=== PATIENT | male | born 2000 | race Hispanic/Latino ===

== ENCOUNTER 2021-09-12 22:37 | Emergency (ER) | payer MEDICAID, OTHER ==
[~2021-09-12] VITALS: Ht 167.6 cm; Wt 59.9 kg
[2021-09-13 00:18] VITALS: BP 112/70
[2021-09-13] MEDS ORDERED: AMOX-429 PO (00:20)
== END 2021-09-13 00:51 | disposition home or self-care (01) ==
LOC: EDH 22:37
DX: L04.0 Acute lymphadenitis of face, head and neck (principal)

== ENCOUNTER 2022-11-22 12:48 | Emergency (ER) | payer OTHER ==
[~2022-11-22] VITALS: Ht 165.1 cm; Wt 60.3 kg
[~2022-11-22 12:48] MED LIST: AMOX-429 PO
[2022-11-22] MEDS ORDERED: PENICILLIN G POTASSIUM 5 MILUNITS/VIAL IM ONE (15:00)
[2022-11-22] MEDS ORDERED: KETOROLAC 30MG VIAL (30MG/ML) IM ONE (15:00)
[2022-11-22] MEDS ORDERED: IBUP-2070 PO (15:02)
[2022-11-22] MEDS ORDERED: PENICILLIN G BENZATHINE LA 1.2 MILUNITS/2 ML SYG IM ONE (15:30)
[2022-11-22 16:50] VITALS: BP 108/65
== END 2022-11-22 17:01 | disposition home or self-care (01) ==
LOC: EDH 12:48
DX: J02.9 Acute pharyngitis, unspecified (principal); R51.9 Headache, unspecified; Z79.1 Long term (current) use of non-steroidal anti-inflammatories (NSAID); Z79.2 Long term (current) use of antibiotics; Z20.822 Contact with and (suspected) exposure to COVID-19
CPT/HCPCS: 99284; 87635; 87880; 87804 ×2; 96372; J0561; C9803; J1885

== ENCOUNTER 2025-01-18 16:29 | Emergency (ER) | payer SELFPAY ==
[~2025-01-18] VITALS: Ht 165.1 cm; Wt 61.2 kg
[~2025-01-18 16:29] MED LIST changes: +IBUP-2070 PO
[2025-01-18 17:29] LABS: BILIRUBIN,URINE NEGATIVE (NEGATIVE); COLOR,URINE LIGHT-YELLOW (YELLOW); GLUCOSE, URINE (UA) NEGATIVE (NEGATIVE); KETONES,URINE NEGATIVE (NEGATIVE); LEUKOCYTE ESTERASE ,URINE NEGATIVE Leu/uL (NEGATIVE); NITRATE,URINE NEGATIVE (NEGATIVE); OCCULT BLOOD,URINE NEGATIVE (NEGATIVE); PH,URINE 7.5 (5.0-8.0); PROTEIN,URINE NEGATIVE (NEGATIVE)
[2025-01-18 17:30] LABS: ADD UA MICROSCOPIC NO; APPEARANCE,URINE CLEAR (CLEAR)
--- NOTE | 2025-01-18 18:00 | ERN ---
General Chief Complaint: Urinary Frequency Stated Complaint: URINARY PROBLEMS Time Seen by MD: 16:33 Time Seen by Midlevel: 16:33 Source: patient History of Present Illness Initial Comments The patient is a 24-year-old male with no significant past medical history presenting to the emergency department for evaluation of polyuria and dysuria that has been intermittent in nature for the last two years. The patient reports a similar episode earlier in the month and was diagnosed with a urinary tract infection. He does report having a history of chlamydia however today he denies having any concern for an STD. He specifically denies any suprapubic abdominal pain, hematuria, or any other symptoms at this time. Allergies: Coded Allergies: No Known Allergies (Unverified Allergy, Unknown, 09/12/21) Home Meds Active Scripts Ibuprofen (Ibuprofen) 600 Mg Tablet, 600 MG PO Q6H PRN for PAIN, #30 TAB Prov:DERRICK MALDONADO 11/22/22 Amoxicillin/Potassium Clav (Augmentin 875-125 Tablet) 1 Each Tablet, 1 TAB PO BID for 10 Days, #20 TAB 0 Refills Prov:MIRELLA GALLAGHER MD 09/13/21 Past Medical History Past Medical History: No Pertinent History Past Surgical History: None Social History Social History: Negative ROS Dictation CONSTITUTIONAL: Negative except for HPI HEAD/FACE: Negative except for HPI EENT: Negative except for HPI RESPIRATORY: Negative except for HPI GASTROINTESTINAL/ABDOMINAL: Negative except for HPI GENITOURINARY: Negative except for HPI MUSCULOSKELETAL: Negative except for HPI INTEGUMENTARY: Negative except for HPI NEUROLOGICAL/PSYCH: Negative except for HPI HEMATOLOGIC/LYMPHATIC: Negative except for HPI All Systems Negative, Except as noted above. 13 point review of systems assessed and all negative except for above. Physical Exam Physical Exam Dictation Vital Signs reviewed General Appearance: Alert, oriented x 3, no acute distress, well developed, nourished. Head and Face: non-traumatic. Eyes: PERRL, pink conjunctivas, eyelid no trauma, anterior chamber with arcus senilis. Ears: Pinnas intact and no signs of trauma or erythema ear canals clear and no discharge TM no erythema Nose: No discharge, no bleeding. Oropharynx: Mouth normal, tongue pink, pharynx clear,no erythema, tonsils no exudates, no abscesses noted, mucous membrane moist Neck: Supple, non-tender, no thyromegaly, no masses, no JVD, no bruits Breast:Deferred Chest:No tenderness, no crepitus, no paradoxical movement, no retractions Lungs:Clear, well-ventilated, symmetric, no rales, no wheezing, no rhonchi, no stridor, good breath sounds bilaterally Heart: Regular rate, regular rhythm, no murmur, no gallops Vascular: no peripheral edema, Abdomen: Soft, positive bowel sounds, nondistended, no guarding, nontender, no rebound, no masses no hepatomegaly, no splenomegaly, no Morris's sign, no hernias. Rectal: Deferred Genital: Deferred Neurological: Normal speech, motor function intact, sensory function intact Musculoskeletal: Neck nontender, full range of motion, back nontender, full range of motion, Extremities: nontender, full range of motion Skin: Color pink, dry, no turgor, no rash, no lacerations, no abrasions, no contusions. Lymphatic: Deferred Results Laboratory and Microbiology Lab and Micro Result Laboratory Tests Test 01/18/25 17:05 Urine Color LIGHT-YELLOW (YELLOW) Urine Appearance CLEAR (CLEAR) Urine pH 7.5 (5.0-8.0) Urine Specific Robards 1.014 (1.001-1.031) Urine Protein NEGATIVE mg/dL (NEGATIVE) Urine Glucose (UA) NEGATIVE mg/dL (NEGATIVE) Urine Ketones NEGATIVE mg/dL (NEGATIVE) Urine Occult Blood NEGATIVE (NEGATIVE) Urine Nitrate NEGATIVE (NEGATIVE) Urine Bilirubin NEGATIVE mg/dL (NEGATIVE) Urine Urobilinogen 4.0 mg/dL (0.2-1.0) H Urine Leukocyte Esterase NEGATIVE Minor/uL Labs Reviewed?: Yes MDM MDM: The patient is a 24-year-old male with no significant past medical history presenting to the emergency department for evaluation of polyuria and dysuria that has been intermittent in nature for the last two years. The patient reports a similar episode earlier in the month and was diagnosed with a urinary tract infection. He does report having a history of chlamydia however today he denies having any concern for an STD. He specifically denies any suprapubic abdominal pain, hematuria, or any other symptoms at this time. On physical examination the patient is in no acute distress. Initial vital signs are stable. Urinalysis does not show any evidence of infection. No hematuria noted. I did offer STD testing given his history and he agreed. chlamydia PCR was sent to the lab. There is a low suspicion for a sexually transmitted disease at this time so the patient will not be treated empirically. Given the patient's persistent symptoms for over two years he will need to follow up with Urology for further evaluation. He agrees and referral was given. Return precautions discussed Differential diagnosis: Urinary tract infection, sexually transmitted disease, There are no social concerns with this patient. Prescription drug management Prescriptions will include: None Medical management and examination interpretation discussions were had by me with other qualified healthcare professionals as indicated for the patient's care. ED Course Orders Procedure Category Date Status Time Urinalysis Profile LAB 01/18/25 Complete 17:10 Chlamydia & Gc Pcr RAQUEL 01/18/25 Complete 17:51 Vital Signs Date Time Temp Pulse Resp B/P (MAP) Pulse Ox O2 Delivery O2 Flow Rate FiO2 01/18/25 18:02 98.2 78 16 122/74 99 Room Air* 0 21 01/18/25 16:58 98.2 81 16 128/77 99 Room Air* 0 21 01/18/25 16:44 98.2 81 16 128/77 99 Room Air 0 DX & DISP Disposition: Discharge Departure Impression: Primary Impression: Polyuria Condition: Stable Additional Instructions: You will need to follow up with the urologist for further evaluation. To your employer this is to inform you that [employer] is currently under medical evaluation for condition causing excessive urinary frequency. As part of the care they may require frequent restroom access throughout the workday. We kindly request accommodations to allow the patient to use restroom facilities as needed until further notice. Referrals: SELF,REFERRAL (PCP) JACQUES SAUER MD Time of Disposition: 17:56 I have reviewed the case, and I agree with, Diagnosis and Plan I performed the substantive portion of the visit. I have reviewed and personally made and approve the management plan that is documented in the note by myself or the TAWANA. I acknowledge for responsibility for the patient's management plan. ENDY CORNEJO January 18, 2025 18:00 FNUMI GUZMAN DO January 20, 2025 04:44
[2025-01-18 18:02] VITALS: BP 122/74; PULSE 78; RESP 16; TEMP 98.2; O2SAT 99
== END 2025-01-18 18:03 | disposition home or self-care (01) ==
LOC: EDH 16:29
DX: R35.89 Other polyuria (principal)
CPT/HCPCS: 81003; 87491; 87591; 99283